=== PATIENT | male | born 1950 | race Caucasian/White ===

== ENCOUNTER 2022-11-28 10:06 | Outpatient (RCR) | payer MEDICARE, MEDICAID | END 2022-12-13 | disposition home or self-care (01) | LOC: ONC 10:06 | PROVIDERS: ATTEND Internal Medicine Hematology & Oncology | DX: Z53.9 Procedure and treatment not carried out, unspecified reason (principal) ==

== ENCOUNTER 2023-02-20 10:00 | Outpatient (RCR) | payer MEDICAID, MEDICARE | END 2023-03-15 | disposition home or self-care (01) | LOC: ONC 10:00 | PROVIDERS: ATTEND Internal Medicine Hematology & Oncology | DX: C44.321 Squamous cell carcinoma of skin of nose (principal) | CPT/HCPCS: 99214 ==

== ENCOUNTER → 2023-05-15 | Outpatient (RCR) | payer MEDICARE | END | disposition home or self-care (01) | LOC: ONC 10:35 | PROVIDERS: ATTEND Internal Medicine Hematology & Oncology | DX: C44.321 Squamous cell carcinoma of skin of nose (principal) ==